=== PATIENT | female | born 1995 | race Caucasian/White ===

== ENCOUNTER 2018-05-13 08:39 | Emergency (ER) | payer BC ==
[2018-05-13 09:01] VITALS: BP 188/79
--- NOTE | 2018-05-13 09:50 | UC ---
HPI Wound/Suture Re-check - HPI Summary HPI Summary: suture removal from the nose and upper lip sutures were placed 5 days ago healing well , no redness, no discharge also c/o right ear hearing loss over the past one year - History Of Current Complaint Chief Complaint: [facility] Stated Complaint: NEEDS STITCHES TAKEN OUT (NOT DONE HERE) Time Seen by Provider: 05/13/18 09:04 Hx Obtained From: Patient Hx Last Menstrual Period: 05/10/18 Onset/Duration: Sudden Onset, Lasting Days - 5, Still Present Severity: Moderate Pain Intensity: 0 Pain Scale Used: 0-10 Numeric Procedure Type: suture removal / laceration nose and upper lip Surgery Date: 05/08/18 - Allergies/Home Medications Allergies/Adverse Reactions: Allergies Allergy/AdvReac Type Severity Reaction Status Date / Time No Known Allergies Allergy Verified 05/13/18 09:01 Home Medications: Home Medications Acetaminophen [Non-Aspirin] 650 mg PO BID PRN 05/13/18 [History Confirmed ] Amoxicillin PO (*) [Amoxicillin 500 MG CAP*] 500 mg PO TID 05/13/18 [History Confirmed 05/13/18] Ibuprofen TAB* [Motrin TAB* 400 MG] 400 mg PO Q8H PRN 05/13/18 [History Confirmed 05/13/18] ValACYclovir (*) [Valtrex 500 mg (*)] 500 mg PO DAILY 05/13/18 [History Confirmed 05/13/18] PMH/Surg Hx/FS Hx/Imm Hx Previously Healthy: Yes - Surgical History Surgical History: Yes Surgery Procedure, Year, and Place: wisdom teeth - Family History Known Family History: Negative: Diabetes - Social History Alcohol Use: Occasionally Substance Use Type: None Smoking Status (MU): Never Smoked Tobacco - Immunization History Most Recent Tetanus Shot: 02/2017 Review of Systems Constitutional: Negative Eyes: Negative ENT: Negative Respiratory: Negative Cardiovascular: Negative Is Patient Immunocompromised?: No All Other Systems Reviewed And Are Negative: Yes Physical Exam Triage Information Reviewed: Yes Appearance: Well-Appearing, No Pain Distress, Well-Nourished Vital Signs: Initial Vital Signs Temp 98.1 F 05/13/18 08:51 Pulse 65 05/13/18 08:51 Resp 18 05/13/18 08:51 BP 188/79 05/13/18 08:51 Pulse Ox 100 05/13/18 08:51 Vital Signs Reviewed: Yes Eyes: Positive: Conjunctiva Clear ENT: Positive: Other - decreas hearing right ear Neck: Positive: Supple, Nontender, No Lymphadenopathy Respiratory: Positive: Chest non-tender, Lungs clear, Normal breath sounds Cardiovascular: Positive: RRR, No Murmur, Pulses Normal Skin: Positive: Other - small laceration 1/2 cm bridge of the nose 2 sutures were removed 1/2 cm laceration upper lip, 2 sutures were removed, no erythema, no discharge, no swelling . Course/Dx - Differential Dx - Laceration/Wound Provider Diagnoses: suture removal. hearing loss right ear Discharge - Sign-Out/Discharge Documenting (check all that apply): Patient Departure All imaging exams completed and their final reports reviewed: No Studies - Discharge Plan Condition: Stable Disposition: HOME Patient Education Materials: Hearing Loss (ED), Stitches Removal (ED) Referrals: No Primary Care Phys,NOPCP [Primary Care Provider] - Additional Instructions: please follow up with your pcp for Audiology testing and referral to ENT - Billing Disposition and Condition Condition: STABLE Disposition: Home
== END 2018-05-13 09:35 | disposition home or self-care (01) ==
LOC: UCCORT 08:39
DX: S01.21XD Laceration without foreign body of nose, subsequent encounter (principal); S01.511D Laceration without foreign body of lip, subsequent encounter; X58.XXXD Exposure to other specified factors, subsequent encounter; Y92.9 Unspecified place or not applicable
CPT/HCPCS: 99202; G0463

== ENCOUNTER 2018-11-27 13:45 | Emergency (ER) | payer BC ==
[2018-11-27 15:05] VITALS: BP 141/83
--- NOTE | 2018-11-27 15:28 | UC ---
Complaint Female HPI - HPI Summary HPI Summary: Pt c/o sudden onset of painful hematuria this morning. Pt has concern for UTI. Pt denies risk for STD's - History Of Current Complaint Chief Complaint: [facility]U Stated Complaint: URINARY Time Seen by Provider: 11/27/18 15:14 Hx Obtained From: Patient Hx Last Menstrual Period: 11/10/18 ?: No Onset/Duration: Sudden Onset, Lasting Hours Timing: Constant Severity Initially: Moderate Severity Currently: Mild Pain Intensity: 0 Character: Dull, Burning Aggravating Factor(s): Urination Alleviating Factor(s): Nothing Associated Signs And Symptoms: Positive: Negative - Risk Factors Ectopic Risk Factor: Negative Ovarian Torsion Risk Factor: Reproductive Age - Allergies/Home Medications Allergies/Adverse Reactions: Allergies Allergy/AdvReac Type Severity Reaction Status Date / Time No Known Allergies Allergy Verified 11/27/18 14:58 PMH/Surg Hx/FS Hx/Imm Hx Previously Healthy: Yes - Surgical History Surgical History: Yes Surgery Procedure, Year, and Place: wisdom teeth. Brain sx--2019 - Family History Known Family History: Negative: Diabetes - Social History Occupation: Employed Full-time Lives: With Family Alcohol Use: Weekly Substance Use Type: None Smoking Status (MU): Current Every Day Smoker Type: Cigarettes Amount Used/How Often: 1-2 cigs per day Length of Time of Smoking/Using Tobacco: 6 mos Have You Smoked in the Last Year: Yes - Immunization History Most Recent Tetanus Shot: 02/2017 Vaccination Up to Date: Yes Review of Systems All Other Systems Reviewed And Are Negative: Yes Constitutional: Positive: Negative Skin: Positive: Negative Eyes: Positive: Negative ENT: Positive: Negative Respiratory: Positive: Negative Cardiovascular: Positive: Negative Gastrointestinal: Positive: Negative Genitourinary: Positive: Dysuria, Hematuria, Frequency, Urgency Motor: Positive: Negative Neurovascular: Positive: Negative Musculoskeletal: Positive: Negative Neurological: Positive: Negative Psychological: Positive: Negative Is Patient Immunocompromised?: No Physical Exam Triage Information Reviewed: Yes Appearance: Well-Appearing Vital Signs: Initial Vital Signs Temp 98.1 F 11/27/18 14:59 Pulse 72 11/27/18 14:59 Resp 14 11/27/18 14:59 BP 141/83 11/27/18 14:59 Pulse Ox 100 11/27/18 14:59 Vital Signs Reviewed: Yes Eye Exam: Normal ENT Exam: Normal Dental Exam: Normal Neck exam: Normal Respiratory Exam: Normal Respiratory: Positive: No respiratory distress Musculoskeletal Exam: Normal Neurological Exam: Normal Psychological Exam: Normal Skin Exam: Normal Complaint Female Dx - Differential Dx/Diagnosis Differential Diagnosis/HQI/PQRI: Sexually Transmitted Disease, Urinary Tract Infection Provider Diagnosis: UTI (urinary tract infection) Discharge - Sign-Out/Discharge Documenting (check all that apply): Patient Departure All imaging exams completed and their final reports reviewed: No Studies - Discharge Plan Condition: Stable Disposition: HOME Prescriptions: Cephalexin CAP* [Keflex 500 CAP*] 500 mg PO Q8H #21 cap Fluconazole 150 MG TAB* [Diflucan 150 MG TAB*] 150 mg PO ONCE #2 tablet Phenazopyridine TAB* [Pyridium 100 mg TAB*] 100 mg PO Q8H #3 tab Patient Education Materials: Urinary Tract Infection in Women (ED) Referrals: Rosa Lagunas [Primary Care Provider] - If Needed - Billing Disposition and Condition Condition: STABLE Disposition: Home - Attestation Statements Provider Attestation: I was available for consult. This patient was seen by the SUZI. The patient was not presented to, seen by, or examined by me. -Satya
== END 2018-11-27 15:46 | disposition home or self-care (01) ==
LOC: UCCORT 13:45
DX: N39.0 Urinary tract infection, site not specified (principal); F17.210 Nicotine dependence, cigarettes, uncomplicated
CPT/HCPCS: 81003; 87077; 87086; 87186; 99212; G0463

== ENCOUNTER 2019-01-17 13:44 | Emergency (ER) | payer BC ==
[2019-01-17 14:05] VITALS: BP 134/80
--- NOTE | 2019-01-17 14:53 | UC ---
UC General HPI - HPI Summary HPI Summary: pt reports having some episodes of burning with urination for the past 3 days. yesterday, she also noted some white vaginal discharge; however, that has since resolved. pt would like std testing. she has a hx of herpes but takes Valtrex daily and has not had an outbreak since starting that medication. she has no fever or abdominal pain. current partner of 3 months. - History of Current Complaint Chief Complaint: UCGU Stated Complaint: URINARY Time Seen by Provider: 01/17/19 14:35 Hx Obtained From: Patient Hx Last Menstrual Period: 01/09/19 Pain Intensity: 4 - Allergy/Home Medications Allergies/Adverse Reactions: Allergies Allergy/AdvReac Type Severity Reaction Status Date / Time No Known Allergies Allergy Verified 01/17/19 13:58 PMH/Surg Hx/FS Hx/Imm Hx - Additional Past Medical History Additional PMH: HSV 2 - Surgical History Surgical History: Yes Surgery Procedure, Year, and Place: wisdom teeth. Brain sx--2019 - Family History Known Family History: Positive: Non-Contributory Negative: Diabetes - Social History Alcohol Use: Weekly Substance Use Type: None Smoking Status (MU): Current Every Day Smoker Type: Cigarettes Amount Used/How Often: 1-2 cigs per day Length of Time of Smoking/Using Tobacco: 6 mos Have You Smoked in the Last Year: Yes - Immunization History Most Recent Tetanus Shot: 02/2017 Vaccination Up to Date: Yes Review of Systems All Other Systems Reviewed And Are Negative: Yes Constitutional: Negative: Fever Gastrointestinal: Negative: Abdominal Pain Genitourinary: Positive: Dysuria, Frequency, Vaginal/Penile Discharge. Negative : Hematuria Physical Exam Triage Information Reviewed: Yes Appearance: Well-Appearing Vital Signs: Initial Vital Signs Temp 98.8 F 01/17/19 13:59 Pulse 84 01/17/19 13:59 Resp 16 01/17/19 13:59 BP 134/80 01/17/19 13:59 Pulse Ox 99 01/17/19 13:59 Vital Signs Reviewed: Yes Eyes: Positive: Conjunctiva Clear Neck: Positive: Supple, Nontender, No Lymphadenopathy Respiratory: Positive: Lungs clear, Normal breath sounds Cardiovascular: Positive: RRR, No Murmur Abdomen Description: Positive: Nontender, No Organomegaly, Soft Bowel Sounds: Positive: Present Pelvic Exam: Positive: External Exam Normal, Speculum Exam Normal, Bimanual Exam Normal, Other - cultures obtained. Negative: Ulcers Neurological: Positive: Alert Psychological: Positive: Age Appropriate Behavior Skin Exam: Normal Diagnostics - Laboratory Lab Results: u/a=trace blood and leukocytes with culture pending. urine hcg=negative. Affirm , GC and Chlamydia are all pending. Course/Dx - Course Course Of Treatment: pt agrees to GC, Chlamydia and the affirm but declined HIV and Syphilis testing. - Differential Dx - Multi-Symptom Differential Diagnoses: Other - no overt STI's but labs are pending. hcg= negative. u/a=small blood and leukocytes with culture pending. will cover with 3 day tx of bactrim. - Diagnoses Provider Diagnosis: Dysuria Discharge - Sign-Out/Discharge Documenting (check all that apply): Patient Departure All imaging exams completed and their final reports reviewed: No Studies - Discharge Plan Condition: Stable Disposition: HOME Prescriptions: Sulfamethox/Trimethoprim DS* [Bactrim DS 800/160 TAB*] 1 tab PO BID 3 Days #6 tab Patient Education Materials: Dysuria (ED) Referrals: Rosa Lagunas [Primary Care Provider] - 7 Days - Billing Disposition and Condition Condition: STABLE Disposition: Home - Attestation Statements Provider Attestation: Per institutional requirements, I have reviewed the chart, however, I was not consulted specifically or made aware of this patient by the midlevel provider. I did not personally evaluate, interact with , or disposition this patient. Addendum entered and electronically signed by Laura Lira PA 01/17/19 15:17 : UC Addendum Addendum: pt had no sign of a herpes outbreak but was advised that herpes could be a cause of dysuria. if the s/s's do not resolved with uti tx and a cause is not identified on the labs then she should ddiscuss this with her pcp.
[2019-01-18 12:39] LABS: Neisseria gonorrhoeae (GC) RNA Negative (Negative)
[2019-01-18 12:59] LABS: Trichomonas vaginalis Result Negative (Negative)
--- NOTE | 2019-01-18 14:29 | UC ---
- Progress Note Progress Note: please call the pt. with lab report + Chlamydia will call in Zithromax 1 gm po x 1 please have her partner be seen for evaluation and tx Course/Dx - Diagnoses Provider Diagnoses: Dysuria Discharge - Sign-Out/Discharge Documenting (check all that apply): Patient Departure All imaging exams completed and their final reports reviewed: No Studies - Discharge Plan Condition: Stable Disposition: HOME Prescriptions: Azithromycin TAB* [Zithromax TAB (Z-PATRICA) 250 mg #6 tabs] 1,000 mg PO DAILY #4 tab Sulfamethox/Trimethoprim DS* [Bactrim DS 800/160 TAB*] 1 tab PO BID 3 Days #6 tab Patient Education Materials: Dysuria (ED) Referrals: Rosa Lagunas [Primary Care Provider] - 7 Days - Billing Disposition and Condition Condition: STABLE Disposition: Home
== END 2019-01-17 15:20 | disposition home or self-care (01) ==
LOC: UCCORT 13:44
DX: R30.0 Dysuria (principal); B00.9 Herpesviral infection, unspecified; F17.210 Nicotine dependence, cigarettes, uncomplicated; Z79.899 Other long term (current) drug therapy
CPT/HCPCS: 81003; 84702; 87086; 87480; 87491; 87510; 87591; 87661; 99212; G0463

== ENCOUNTER 2019-02-13 09:24 | Emergency (ER) | payer BC ==
[2019-02-13 09:35] VITALS: BP 135/89
--- NOTE | 2019-02-13 09:51 | UC ---
Complaint Female HPI - HPI Summary HPI Summary: 23-year-old female who has had some burning on urination however she states also that she has some vaginal burning. She and her partner were both treated for chlamydia approximately one month ago. She denies any fever or chills and no abnormal vaginal discharge. - History Of Current Complaint Chief Complaint: UCGeneralIllness Stated Complaint: PERSONAL Time Seen by Provider: 02/13/19 09:39 Hx Obtained From: Patient Hx Last Menstrual Period: 01/2019 ?: No Onset/Duration: Gradual Onset Timing: Intermittent Severity Initially: Mild Severity Currently: Mild Pain Intensity: 6 Character: Burning Aggravating Factor(s): [place], Urination Alleviating Factor(s): Nothing Associated Signs And Symptoms: Negative: Vaginal Bleeding/Discharge, Vaginal Discharge - Allergies/Home Medications Allergies/Adverse Reactions: Allergies Allergy/AdvReac Type Severity Reaction Status Date / Time No Known Allergies Allergy Verified 02/13/19 09:30 PMH/Surg Hx/FS Hx/Imm Hx Previously Healthy: Yes - Surgical History Surgical History: Yes Surgery Procedure, Year, and Place: wisdom teeth. Brain sx--2019 - Family History Known Family History: Positive: Non-Contributory Negative: Diabetes - Social History Alcohol Use: Occasionally Substance Use Type: None Smoking Status (MU): Current Every Day Smoker Type: Cigarettes Amount Used/How Often: 1-2 cigs per day Length of Time of Smoking/Using Tobacco: 6 mos Have You Smoked in the Last Year: Yes - Immunization History Most Recent Tetanus Shot: 02/2017 Vaccination Up to Date: Yes Review of Systems All Other Systems Reviewed And Are Negative: Yes Genitourinary: Positive: Dysuria, Vaginal/Penile Tenderness. Negative: Vaginal/ Penile Itching, Vaginal/Penile Discharge, Vaginal/Penile Pain, Abnormal Bleeding Is Patient Immunocompromised?: No Physical Exam Triage Information Reviewed: Yes Appearance: Well-Appearing, No Pain Distress, Well-Nourished Vital Signs: Initial Vital Signs Temp 97.8 F 02/13/19 09:30 Pulse 80 02/13/19 09:30 Resp 14 02/13/19 09:30 BP 135/89 02/13/19 09:30 Pulse Ox 100 02/13/19 09:30 Vital Signs Reviewed: Yes Respiratory: Positive: Lungs clear, Normal breath sounds, No respiratory distress, No accessory muscle use Cardiovascular: Positive: RRR, No Murmur, Pulses Normal, Brisk Capillary Refill Abdomen Description: Positive: Nontender, No Organomegaly, Soft Bowel Sounds: Positive: Present Pelvic Exam: Positive: External Exam Normal, Bimanual Exam Normal, No Cerv. Motion Tender. Negative: Active Bleeding, Discharge, Tender w/ Cervical Motion , Tender Adnexa, Tender Uterus - Affirm and Chlamydia and gonorrhea cultures were obtained. Musculoskeletal Exam: Normal Neurological Exam: Normal Psychological Exam: Normal Skin Exam: Normal Complaint Female Dx - Course Course Of Treatment: The urine hCG was negative, the urinalysis was positive for possible urinary tract infection and that was a clean catch urine. At this point time and going to treat her for the urinary tract infection with Macrobid twice a day for 7 days since she is attempting to conceive. We will call her with the GC and Chlamydia culture results - Differential Dx/Diagnosis Provider Diagnosis: UTI (urinary tract infection) Discharge - Sign-Out/Discharge Documenting (check all that apply): Patient Departure All imaging exams completed and their final reports reviewed: No Studies - Discharge Plan Condition: Fair Disposition: HOME Prescriptions: Nitrofurantoin Monohyd/M-Cryst [Macrobid 100 mg Capsule] 100 mg PO BID 7 Days # 14 cap Patient Education Materials: Urinary Tract Infection in Women (DC) Referrals: Rosa Lagunas [Primary Care Provider] - Additional Instructions: Increase fluids, we will call you with the culture results. Follow-up with your primary care provider if any worsening symptoms. - Billing Disposition and Condition Condition: FAIR Disposition: Home - Attestation Statements Provider Attestation: I was available for consult. This patient was seen by the SU[facility]. The patient was not presented to , seen by or examined by in -Bj Reyes MD
[2019-02-14 11:52] LABS: Neisseria gonorrhoeae (GC) RNA Negative (Negative)
[2019-02-14 12:22] LABS: Trichomonas vaginalis Result Negative (Negative)
== END 2019-02-13 10:12 | disposition home or self-care (01) ==
LOC: UCCORT 09:24
DX: N39.0 Urinary tract infection, site not specified (principal); F17.210 Nicotine dependence, cigarettes, uncomplicated
CPT/HCPCS: 81003; 84702; 87086; 87480; 87491; 87510; 87591; 87661; 99212; G0463